=== PATIENT | male | born 1950 | race Two or more races ===

== ENCOUNTER 2017-10-11 12:02 | Inpatient (IN) | payer MEDICARE ==
[2017-10-11] MEDS ORDERED: NORMAL SALINE 1000 ML 1,000 ML IV ONE (12:29)
--- NOTE | 2017-10-11 12:33 | ER Document Report ---
ED Medical Screen (RME) - General Chief Complaint: Near Syncope Stated Complaint: BLOOD SUGAR ISSUE Time Seen by Provider: 10/11/17 12:23 Mode of Arrival: Ambulatory Information source: Patient TRAVEL OUTSIDE OF THE [place] IN LAST 30 DAYS: No - HPI Patient complains to provider of: Syncope and high blood sugar Onset: Other - 67-year-old who presents 2 days after an episode of syncope as well as generalized fatigue. He has had polyuria, polydipsia, lightheadedness and an episode of syncope while standing non-exertionally. He has not checked his blood sugar in approximately 4 weeks, he has been taking his normal blood pressure medications as well as his metformin. - Related Data Allergies/Adverse Reactions: No Known Allergies Allergy (Verified 10/11/17 12:28) Past Medical History - Social History Frequency of alcohol use: None Drug Abuse: None - Past Medical History Cardiac Medical History: Reports: Hx Hypertension Endocrine Medical History: Reports: Hx Diabetes Mellitus Type 2 Renal/ Medical History: Denies: Hx Peritoneal Dialysis Past Surgical History: Reports: Hx Orthopedic Surgery - bilateral knees Physical Exam - Vital signs Vitals: Temp Pulse Resp BP Pulse Ox 98.0 F 107 H 18 120/68 95 10/11/17 12:11 10/11/17 12:11 10/11/17 12:11 10/11/17 12:11 10/11/17 12:11 - Notes Notes: Chronically ill-appearing 67-year-old man neurologically intact without any obvious murmurs rubs clicks. Course - Re-evaluation Re-evalutation: 10/11/17 12:32 This 67-year-old man presents for poorly controlled diabetes previously non- insulin-dependent as well as an episode of syncope. Given his multiple risk factors for potential cardiac etiology will obtain enzymes as well as an EKG, will obtain CMP CBC VBG has this patient also has an unmeasurable blood glucose at this time suggesting greater than 600 with the potential for DKA. At this time he may have a condition which represents a serious injury or life threat. - Vital Signs Vital signs: Temp Pulse Resp BP Pulse Ox 98.0 F 107 H 18 120/68 95 10/11/17 12:11 10/11/17 12:11 10/11/17 12:11 10/11/17 12:11 10/11/17 12:11
[2017-10-11 13:19] LABS: ABSOLUTE BASOPHILS # (AUTO) 0.1 10^3/uL (0.0-0.2); ABSOLUTE LYMPHOCYTES (AUTO) 1.1 10^3/uL (0.5-4.7); ABSOLUTE MONOCYTES (AUTO) 0.8 10^3/uL (0.1-1.4); ABSOLUTE NEUT (AUTO) 8.6 10^3/uL (1.7-8.2); BASOPHILS % (AUTO) 0.6 % (0-2); EOSINOPHILS % (AUTO) 0.2 % (0-6); HEMATOCRIT 43.5 % (37.9-51.0); HEMOGLOBIN 14.6 g/dL (13.5-17.0); MEAN CORPUSCULAR HEMOGLOBIN 30.1 pg (27.0-33.4); MEAN CORPUSCULAR HGB CONC 33.7 g/dL (32.0-36.0); MEAN CORPUSCULAR VOLUME 89 fl (80-97); MONOCYTES % (AUTO) 7.9 % (3-13); PLATELET COUNT 228 10^3/uL (150-450); RED BLOOD COUNT 4.86 10^6/uL (4.35-5.55); RED CELL DISTRIBUTION WIDTH 12.7 % (11.5-14.0); SEGMENTED NEUTROPHILS % (AUTO) 81.3 % (42-78); TOTAL CELLS COUNTED % (AUTO) 100 %; WHITE BLOOD COUNT 10.6 10^3/uL (4.0-10.5)
[2017-10-11 13:37] LABS: APPEARANCE,URINE SLIGHTLY-CLOUDY; BILIRUBIN,URINE NEGATIVE (NEGATIVE); COLOR,URINE YELLOW; GLUCOSE, URINE >=500 mg/dL (NEGATIVE); KETONES,URINE TRACE mg/dL (NEGATIVE); LEUKOCYTE ESTERASE,URINE SMALL (NEGATIVE); NITRITE,URINE NEGATIVE (NEGATIVE); PROTEIN,URINE NEGATIVE (NEGATIVE); URINE SPECIFIC GRAVITY 1.025; UROBILINOGEN,URINE NEGATIVE mg/dL (<2.0)
[2017-10-11 13:43] LABS: ALANINE AMINOTRANSFERASE 17 U/L (21-72); ALBUMIN 3.7 g/dL (3.5-5.0); ALKALINE PHOSPHATASE 126 U/L (38-126); ANION GAP 18 (5-19); ASPARTATE AMINO TRANSFERASE 16 U/L (17-59); BILIRUBIN,DIRECT 0.3 mg/dL (0.0-0.4); BILIRUBIN,TOTAL 0.6 mg/dL (0.2-1.3); BLOOD UREA NITROGEN 36 mg/dL (7-20); CALCIUM 9.3 mg/dL (8.4-10.2); CARBON DIOXIDE 25 mmol/L (22-30); CHLORIDE 84 mmol/L (98-107); CREATINE KINASE 50 U/L (55-170); POTASSIUM 5.3 mmol/L (3.6-5.0); SODIUM 126.7 mmol/L (137-145)
--- NOTE | 2017-10-11 13:45 | RADIOLOGY REPORT (SQ) ---
EXAM DESCRIPTION: CHEST SINGLE VIEW COMPLETED DATE/TIME: 10/11/2017 1:21 pm REASON FOR STUDY: syncope COMPARISON: None. EXAM PARAMETERS: NUMBER OF VIEWS: One view. TECHNIQUE: Single frontal radiographic view of the chest acquired. RADIATION DOSE: NA LIMITATIONS: None. FINDINGS: LUNGS AND PLEURA: No opacities, masses or pneumothorax. No pleural effusion. MEDIASTINUM AND HILAR STRUCTURES: No masses. Contour normal. HEART AND VASCULAR STRUCTURES: Heart normal in size. Normal vasculature. BONES: No acute findings. HARDWARE: None in the chest. OTHER: No other significant finding. IMPRESSION: NO ACUTE RADIOGRAPHIC FINDING IN THE CHEST. TECHNICAL DOCUMENTATION: JOB ID: [id number] [employer]- All Rights Reserved Reading location - IP/workstation name: [email or web address]
--- NOTE | 2017-10-11 13:51 | ER Document Report ---
ED General - General Chief Complaint: Near Syncope Stated Complaint: BLOOD SUGAR ISSUE Time Seen by Provider: 10/11/17 12:23 Mode of Arrival: Ambulatory Information source: Patient TRAVEL OUTSIDE OF THE [place] IN LAST 30 DAYS: No - HPI Patient complains to provider of: High blood sugar Quality of pain: No pain Associated symptoms: Body/muscle aches, Nausea, Vomiting, Weakness Exacerbated by: Denies Relieved by: Denies Notes: Patient is a 67-year-old male with a history of type 2 diabetes, presenting to the emergency room today complaining of increased thirst and urination, nausea with decreased appetite and occasional vomiting, generalized feeling of unwellness, symptoms have been worsening over the past week, he states he had a near syncopal episode 3 days ago as well when he collapsed but did not have loss of consciousness, he has not checked his blood sugar in several weeks but continues to take his metformin, recently relocated to the area from [place] , son is a marine located here, patient has been staying in a hotel because he lost the job that he moved down here to take, and states that he will run out of money tomorrow and be unable to stay at the hotel any longer until he gets his check again on 21 October - Related Data Allergies/Adverse Reactions: No Known Allergies Allergy (Verified 10/11/17 12:28) Past Medical History - General Information source: Patient - Social History Smoking Status: Never Smoker Frequency of alcohol use: None Drug Abuse: None Family History: Reviewed & Not Pertinent Patient has suicidal ideation: No Patient has homicidal ideation: No - Past Medical History Cardiac Medical History: Reports: Hx Hypertension Endocrine Medical History: Reports: Hx Diabetes Mellitus Type 2 Renal/ Medical History: Denies: Hx Peritoneal Dialysis Past Surgical History: Reports: Hx Orthopedic Surgery - bilateral knees Review of Systems - Review of Systems Constitutional: See HPI EENT: No symptoms reported Cardiovascular: No symptoms reported Respiratory: No symptoms reported Gastrointestinal: See HPI Genitourinary: See HPI Male Genitourinary: No symptoms reported Musculoskeletal: No symptoms reported Skin: No symptoms reported Hematologic/Lymphatic: No symptoms reported Neurological/Psychological: No symptoms reported -: Yes All other systems reviewed and negative Physical Exam - Vital signs Vitals: Temp Pulse Resp BP Pulse Ox 98.0 F 107 H 18 120/68 95 10/11/17 12:11 10/11/17 12:11 10/11/17 12:11 10/11/17 12:11 10/11/17 12:11 Interpretation: Tachycardic - General General appearance: Appears well, Alert - HEENT Head: Normocephalic, Atraumatic Eyes: Normal Pupils: PERRL - Respiratory Respiratory status: No respiratory distress Chest status: Nontender Breath sounds: Normal Chest palpation: Normal - Cardiovascular Rhythm: Regular Heart sounds: Normal auscultation Murmur: No - Abdominal Inspection: Normal Distension: No distension Bowel sounds: Normal Tenderness: Nontender Organomegaly: No organomegaly - Back Back: Normal, Nontender - Extremities General upper extremity: Normal inspection, Nontender, Normal color, Normal ROM , Normal temperature General lower extremity: Normal inspection, Nontender, Normal color, Normal ROM , Normal temperature, Normal weight bearing. No: Chanelle's sign - Neurological Neuro grossly intact: Yes Cognition: Normal Orientation: AAOx4 Mary Alcie Coma Scale Eye Opening: Spontaneous [place] Coma Scale Verbal: Oriented [place] Coma Scale Motor: Obeys Commands [place] Coma Scale Total: 15 Speech: Normal Motor strength normal: LUE, RUE, LLE, RLE Sensory: Normal - Psychological Associated symptoms: Normal affect, Normal mood - Skin Skin Temperature: Warm Skin Moisture: Dry Skin Color: Normal Course - Re-evaluation Re-evalutation: 10/11/17 14:07 Patient with serum blood glucose of 1005, otherwise labs are relatively benign, symptoms consistent with nonketotic hyperosmolar hyperglycemia, patient was discussed with the hospitalist team, SONAL Mendieta who agrees to admit for further evaluation and treatment, insulin drip has been ordered, patient is currently receiving IV fluids, plan was discussed with him at bedside and he is in agreement - Vital Signs Vital signs: Temp Pulse Resp BP Pulse Ox 98.0 F 107 H 18 120/68 95 10/11/17 12:11 10/11/17 12:11 10/11/17 12:11 10/11/17 12:11 10/11/17 12:11 - Laboratory Result Diagrams: 10/11/17 13:02 10/11/17 13:02 Laboratory results interpreted by me: 10/11/17 10/11/17 10/11/17 13:02 13:02 13:02 WBC 10.6 H Seg Neutrophils % 81.3 H Lymphocytes % 10.0 L Absolute Neutrophils 8.6 H Sodium 126.7 L Potassium 5.3 H Chloride 84 L BUN 36 H Creatinine 1.60 H Est GFR ( Amer) 52 L Est GFR (Non-Af Amer) 43 L Glucose 1005 H* AST 16 L ALT 17 L Creatine Kinase 50 L Urine Glucose (UA) >=500 H Urine Ketones TRACE H Ur Leukocyte Esterase SMALL H - EKG Interpretation by Ca EKG shows normal: Sinus rhythm Rate: Tachycardia Discharge - Discharge Clinical Impression: Hyperglycemic hyperosmolar nonketotic coma Condition: Serious Disposition: ADMITTED INPATIENT Admitting Provider: Hospitalist Unit Admitted: [facility]
[2017-10-11 13:54] LABS: CREATINE KINASE MB 0.71 ng/mL (<4.55)
[2017-10-11 13:57] LABS: GLUCOSE 1005 mg/dL (75-110)
[2017-10-11 13:58] LABS: TROPONIN I < 0.012 ng/mL
[2017-10-11] MEDS ORDERED: INSULIN REG, HUMAN 100 UNIT/ML 3 ML VIAL (PYX) IV ONE ×2 (14:00→16:30)
[2017-10-11] MEDS: INSULIN, REGULAR 100 UNIT/100 ML NORMAL SALINE IV PRN ×2 (14:02)
[2017-10-11 14:12] LABS: VENOUS BLOOD BASE EXCESS 1.1 mmol/L; VENOUS BLOOD HCO3 27.1 mmol/L (20-32); VENOUS BLOOD PCO2 48.1 mmHg (35-63); VENOUS BLOOD PH 7.37 (7.30-7.42)
[2017-10-11] MEDS ORDERED: DEXTROSE 50%-WATER 25 GM/50 ML DISP.SYRIN IV PRN ×2 (15:21)
[2017-10-11] MEDS ORDERED: GLUCAGON,HUMAN RECOMB 1 MG INJ SUBCUT PRN (15:21)
[2017-10-11] MEDS ORDERED: ACETAMINOPHEN 325 MG TABLET PO PRN (15:21)
[2017-10-11] MEDS ORDERED: NORMAL SALINE 1000 ML 1,000 ML IV PRN (15:21)
[2017-10-11] MEDS ORDERED: DEXTROSE 40% GEL 15 GM TUBE PO PRN ×3 (15:21→17:32)
[2017-10-11] MEDS ORDERED: HYDRALAZINE HCL INJ/PF 20 MG/1 ML SDV IV PRN (15:33)
[2017-10-11] MEDS ORDERED: INSULIN, REGULAR 100 UNIT/100 ML NORMAL SALINE IV PRN ×2 (17:20)
[2017-10-11] MEDS ORDERED: DEXTROSE 50%-WATER SYRINGE 25 GM/50 ML DOSE IV PRN (17:32)
[2017-10-11] MEDS ORDERED: DEXTROSE 40% GEL 15 GM TUBE X 2 PO PRN (17:32)
[2017-10-11] MEDS ORDERED: GLUCAGON,HUMAN RECOMB 1 MG INJ IM PRN (17:32)
[2017-10-11] MEDS ORDERED: DEXTROSE 50%-WATER SYRINGE 12.5 GM/25 ML DOSE IV PRN (17:32)
--- NOTE | 2017-10-11 18:00 | PDOC H&P ---
History of Present Illness Admission Date/PCP: 10/11/17 14:32 Patient complains of: NAUSEA. POLYURIA. POLYDIPSIA. History of Present Illness: FERNY HAN is a 67 year old male who presented to the emergency department with a 3-day complaint of nausea, dizziness and vision changes. PMH includes HTN and DM 2. The patient states he began experiencing nausea, headaches, vision changes, polyuria and polydipsia approximately 3 days ago. The patient' s symptoms became increasingly worse over the course of 3 days, which prompted him to come to the emergency department. Upon arrival to the ED, his Accu-Chek reading was 'HIGH.' Laboratory studies reveal hyperglycemia (BG 1006), urine glucose > 500, trace urine ketones, creatinine 1.6, potassium 5.3. EKG demonstrates sinus tachycardia, no evidence of ischemia or infarction. CXR benign. Upon assessment, the patient is resting comfortably in bed on room air. He is alert and oriented x3, able to answer all questions appropriately. The patient states he recently relocated from [place] in order to be closer to his son. Patient has not established a PMD in [place], [place]. The patient states he takes metformin BID to control his diabetes but admits he has not checked his blood glucose "in weeks." The patient appears well-nourished and well-developed , appears to be his stated age. Lungs are clear to auscultation. S1-S2. Palpable pulses in all extremities. Skin is warm, pink and dry. Mucous membranes are pink and moist. There is no significant evidence of severe dehydration. Treated with 1 L IVF bolus in ED, continued on maintenance IVF, initiated insulin gtt, and received 9 units regular insulin IV (0.1 u/kg) - all per 2009 ADA guidelines. Plan to admit to hospitalist service for hyperglycemia hyperosmolar nonketotic state (HHNK). Admit to IM on insulin gtt. Past Medical History Cardiac Medical History: Reports: Hypertension Pulmonary Medical History: Reports: None EENT Medical History: Reports: None Neurological Medical History: Reports: None Endocrine Medical History: Reports: Diabetes Mellitus Type 2 Renal/ Medical History: Reports: None Malignancy Medical History: Reports: None GI Medical History: Reports: None Musculoskeltal Medical History: Reports: None Psychiatric Medical History: Reports: None Traumatic Medical History: Reports: None Hematology: Reports: None Infectious Medical History: Reports: None Past Surgical History Past Surgical History: Reports: Orthopedic Surgery - bilateral knee REPLACEMENT Social History Information Source: Patient Lives with: Alone Smoking Status: Never Smoker Frequency of Alcohol Use: None Hx Recreational Drug Use: No Drugs: None Hx Prescription Drug Abuse: No - Advance Directive Resuscitation Status: Full Code Family History Family History: Reviewed & Not Pertinent Parental Family History Reviewed: No Children Family History Reviewed: No Sibling(s) Family History Reviewed.: No Medication/Allergy Allergies/Adverse Reactions: No Known Allergies Allergy (Verified 10/11/17 12:28) Review of Systems All systems: reviewed and no additional remarkable complaints except as stated Physical Exam Vital Signs: Temp Pulse Resp BP Pulse Ox 98.0 F 107 H 18 120/68 95 10/11/17 12:11 10/11/17 12:11 10/11/17 12:11 10/11/17 12:11 10/11/17 12:11 General appearance: PRESENT: no acute distress Eye exam: PRESENT: conjunctiva pink, PERRLA Mouth exam: PRESENT: moist Neck exam: PRESENT: full ROM Respiratory exam: PRESENT: clear to auscultation sandra, symmetrical, unlabored Cardiovascular exam: PRESENT: +S1, +S2 Pulses: PRESENT: normal radial pulses, normal dorsalis pedis pul GI/Abdominal exam: PRESENT: normal bowel sounds, soft. ABSENT: tenderness Rectal exam: PRESENT: deferred Extremities exam: PRESENT: full ROM Musculoskeletal exam: PRESENT: ambulatory, full ROM Neurological exam: PRESENT: alert, awake, oriented to person, oriented to place , oriented to time, oriented to situation Psychiatric exam: PRESENT: appropriate affect Skin exam: PRESENT: dry, intact, normal color Results Impressions: Chest X-Ray 10/11/17 12:29 IMPRESSION: NO ACUTE RADIOGRAPHIC FINDING IN THE CHEST. Status: Imported from PACS Assessment & Plan - Diagnosis (1) Hyperglycemic hyperosmolar nonketotic coma Is this a current diagnosis for this admission?: Yes Plan: BG 1005. Urine glucose >500. Trace Ketones in urine. No evidence of acidosis on laboratory studies. Patient endorses history of DM II, states he takes daily metformin as directed, admits to not checking his blood glucose "in weeks" Corrected Na 141 Serum Osm (with corrected Na) 303.55 mOsm/kg Initiated insulin gtt in ED 10U Regular insulin bolus IV Q1hr accuchecks Q6hr BMP Bolus 1 L IVF in ED, continue with NS @ 125ml/hr When BG < 300, switch IVF to D5 1/2 NS @ 150ml/hr Strict I&Os (2) Acute renal failure (ARF) Is this a current diagnosis for this admission?: Yes Plan: Patient denies history of kidney disease Initial Cr 1.6 Likely due to volume depletion stemming from HHNK [place] IVF bolus in ED Continue maintenance IVF @ 125mL/hr Strict I&Os (3) HTN (hypertension) Qualifiers: Hypertension type: essential hypertension Qualified Code(s): I10 - Essential (primary) hypertension Is this a current diagnosis for this admission?: Yes Plan: Patient endorses history of HTN Plan to resume home dose Lisinopril (4) Hyperkalemia Is this a current diagnosis for this admission?: Yes Plan: Secondary to HHNK Likely will resolve with insulin gtt and IVF Continue to monitor with daily chemistries - Time Time Spent: 30 to 50 Minutes Critical Time spent with patient: Less than 15 minutes Medications reviewed and adjusted accordingly: Yes Anticipated discharge: Home - Inpatient Certification Based on my medical assessment, after consideration of the patient's comorbidities, presenting symptoms, or acuity I expect that the services needed warrant INPATIENT care.: Yes I certify that my determination is in accordance with my understanding of Medicare's requirements for reasonable and necessary INPATIENT services [42 CFR 412.3e].: Yes Medical Necessity: Need For IV Fluids, Risk of Complication if Not Cared For in Hospital - Plan Summary Plan Summary: insulin gtt. ivf. close monitoring of BG
[2017-10-11 19:27] LABS: ANION GAP 8 (5-19); BLOOD UREA NITROGEN 33 mg/dL (7-20); CALCIUM 9.5 mg/dL (8.4-10.2); CARBON DIOXIDE 33 mmol/L (22-30); CHLORIDE 95 mmol/L (98-107); GLUCOSE 389 mg/dL (75-110); SODIUM 136.1 mmol/L (137-145)
--- NOTE | 2017-10-11 20:32 | EKG REPORT ---
SEVERITY:- OTHERWISE NORMAL ECG - SINUS TACHYCARDIA VENTRICULAR PREMATURE COMPLEX : Confirmed by: Mago Casey 11-Oct-2017 17:31:48
[2017-10-11 21:26] LABS: POTASSIUM 4.4 mmol/L (3.6-5.0)
[2017-10-12] MEDS ORDERED: DEXTROSE 5%-WATER 1000 ML 1,000 ML IV PRN (01:06)
[2017-10-12 02:02] LABS: ANION GAP 9 (5-19); BLOOD UREA NITROGEN 30 mg/dL (7-20); CALCIUM 9.6 mg/dL (8.4-10.2); CARBON DIOXIDE 28 mmol/L (22-30); CHLORIDE 103 mmol/L (98-107); GLUCOSE 59 mg/dL (75-110); SODIUM 140.4 mmol/L (137-145)
[2017-10-12 02:43] LABS: POTASSIUM 3.2 mmol/L (3.6-5.0)
[2017-10-12] MEDS: POTASSIUM CHLORIDE 20 MEQ/50 ML RTU IV SCH ×2 (03:38→05:35)
[2017-10-12] MEDS ORDERED: POTASSI CL 20 MEQ/50 ML RIDER 20 MEQ/50 ML RTUPB IV ONE (04:00)
[2017-10-12] MEDS: INSULIN, REGULAR 100 UNIT/100 ML NORMAL SALINE IV PRN ×2 (06:21)
[2017-10-12 06:22] LABS: ANION GAP 11 (5-19); BLOOD UREA NITROGEN 27 mg/dL (7-20); CALCIUM 8.9 mg/dL (8.4-10.2); CARBON DIOXIDE 26 mmol/L (22-30); CHLORIDE 104 mmol/L (98-107); GLUCOSE 65 mg/dL (75-110); POTASSIUM 3.5 mmol/L (3.6-5.0); SODIUM 140.9 mmol/L (137-145)
[2017-10-12 07:00] LABS: HEMATOCRIT 37.9 % (37.9-51.0); HEMOGLOBIN 13.4 g/dL (13.5-17.0); MEAN CORPUSCULAR HEMOGLOBIN 29.8 pg (27.0-33.4); MEAN CORPUSCULAR HGB CONC 35.4 g/dL (32.0-36.0); PLATELET COUNT 174 10^3/uL (150-450); RED CELL DISTRIBUTION WIDTH 12.2 % (11.5-14.0); WHITE BLOOD COUNT 9.8 10^3/uL (4.0-10.5)
[2017-10-12 07:02] LABS: MEAN CORPUSCULAR VOLUME 84 fl (80-97)
[2017-10-12] MEDS ORDERED: GLUCAGON,HUMAN RECOMB 1 MG INJ IM PRN (08:00)
[2017-10-12] MEDS ORDERED: DEXTROSE 40% GEL 15 GM TUBE PO PRN ×2 (08:00)
[2017-10-12] MEDS ORDERED: DEXTROSE 50%-WATER 25 GM/50 ML DISP.SYRIN IV PRN ×2 (08:00)
--- NOTE | 2017-10-12 10:43 | PDOC PROGRESS REPORT ---
<STAR MENDIETA Seymour - Last Filed: 10/12/17 10:22> Subjective Progress Note for:: 10/12/17 Subjective:: 67 Y.O. M admitted to [facility] for NK. The patient reported a 3 day history of nausea, pulyuria, polydipsia, and headaches. Initial BG 1005, serum Osm 303, urine glucose > 500, trace urine ketones. The patient was seen this morning on rounds. He reports feeling much better today. The patient denies symptoms of polyuria or polydipsia. The patient endorses intermittent blurry vision, denies headaches, denies vision changes when he is wearing corrective eyewear. Insulin gtt stopped this morning. Patient's BG down to 104 when switched to SC Lantus and Humalog SSI. Will continue to closely monitor blood glucose. Barring any complications, anticipate discharge home tomorrow. Reason For Visit: HHNK Physical Exam Vital Signs: Temp Pulse Resp BP Pulse Ox 98.5 F 76 16 120/70 96 10/12/17 07:56 10/12/17 07:56 10/12/17 07:56 10/12/17 07:56 10/12/17 07:56 Intake & Output 10/11/17 10/12/17 10/13/17 06:59 06:59 06:59 Intake Total 1142 60 Output Total 1250 Balance -108 60 Weight 95.2 kg General appearance: PRESENT: no acute distress, well-developed, well-nourished Head exam: PRESENT: atraumatic, normocephalic Eye exam: PRESENT: conjunctiva pink, EOMI, PERRLA. ABSENT: scleral icterus Ear exam: PRESENT: normal external ear exam Mouth exam: PRESENT: moist, tongue midline Neck exam: ABSENT: carotid bruit, JVD, lymphadenopathy, thyromegaly Respiratory exam: PRESENT: clear to auscultation sandra, symmetrical, unlabored. ABSENT: rales, rhonchi, wheezes Cardiovascular exam: PRESENT: RRR. ABSENT: diastolic murmur, rubs, systolic murmur Pulses: PRESENT: normal dorsalis pedis pul Vascular exam: PRESENT: normal capillary refill GI/Abdominal exam: PRESENT: soft. ABSENT: distended, guarding, mass, organolmegaly, rebound, tenderness Rectal exam: PRESENT: deferred Extremities exam: PRESENT: full ROM. ABSENT: calf tenderness, clubbing, pedal edema Neurological exam: PRESENT: alert, awake, oriented to person, oriented to place , oriented to time, oriented to situation Psychiatric exam: PRESENT: appropriate affect, normal mood Skin exam: PRESENT: dry, intact, warm. ABSENT: cyanosis, rash Results Laboratory Results: 10/12/17 05:33 10/12/17 05:33 10/11/17 10/11/17 10/11/17 18:00 18:54 19:30 WBC RBC Hgb Hct MCV MCH MCHC RDW Plt Count Sodium 136.1 L Potassium 4.4 Chloride 95 L Carbon Dioxide 33 H Anion Gap 8 BUN 33 H Creatinine 1.27 H Est GFR ( Amer) > 60 Est GFR (Non-Af Amer) 56 L Glucose 370 H 389 H 301 H Calcium 9.5 Phosphorus Magnesium 10/12/17 10/12/17 10/12/17 01:12 05:33 05:33 WBC 9.8 RBC 4.50 Hgb 13.4 L Hct 37.9 MCV 84 D MCH 29.8 MCHC 35.4 RDW 12.2 Plt Count 174 Sodium 140.4 140.9 Potassium 3.2 L D 3.5 L Chloride 103 104 Carbon Dioxide 28 26 Anion Gap 9 11 BUN 30 H 27 H Creatinine 1.05 0.91 Est GFR ( Amer) > 60 > 60 Est GFR (Non-Af Amer) > 60 > 60 Glucose 59 L 65 L Calcium 9.6 8.9 Phosphorus 3.0 Magnesium 2.3 10/11/17 10/12/17 18:00 05:33 Troponin I < 0.012 NT-Pro-B Natriuret Pep 31 Impressions: Chest X-Ray 10/11/17 12:29 IMPRESSION: NO ACUTE RADIOGRAPHIC FINDING IN THE CHEST. Status: Imported from PACS Assessment & Plan - Diagnosis (1) Hyperglycemic hyperosmolar nonketotic coma Is this a current diagnosis for this admission?: Yes Plan: Resolved Initial BG 1005. Urine glucose >500. Trace Ketones in urine. No evidence of acidosis on laboratory studies. Patient endorses history of DM II, states he takes daily metformin as directed, admits to not checking his blood glucose "in weeks" Initial corrected Na 141, Serum Osm (with corrected Na) 303.55 mOsm/kg Greatly improved today. Na 140. Serum Osm 300 mOsm/kg Initially on insulin gtt, now transitioned to SC Lantus and SC Humalog SSI ACHS accuchecks IVF resuscitation in ED followed by maintenance IVF. Discontinued now that patient is tolerating PO Strict I&Os (2) Acute renal failure (ARF) Is this a current diagnosis for this admission?: Yes Plan: Resolved. Patient denies history of kidney disease Initial Cr 1.6, down to 0.9 today Likely due to volume depletion stemming from HHNK IVF resuscitation in ED. Discontinue maintenance IVF now that patient is tolerating PO Strict I&Os (3) HTN (hypertension) QualifierTitle: Hypertension type: essential hypertension Qualified Code( s): I10 - Essential (primary) hypertension Is this a current diagnosis for this admission?: Yes Plan: Patient endorses history of HTN Plan to resume home dose Lisinopril and HCTZ (4) Hyperkalemia Is this a current diagnosis for this admission?: Yes Plan: Resolved. Potassium was 3.5 this morning HYPERkalemia secondary to HHNK Initial potassium 5.3 Likely will resolve with insulin gtt and IVF Continue to monitor with daily chemistries - Time Time Spent with patient: 15-24 minutes Medications reviewed and adjusted accordingly: Yes Anticipated discharge: Home Within: within 24 hours - Inpatient Certification Based on my medical assessment, after consideration of the patient's comorbidities, presenting symptoms, or acuity I expect that the services needed warrant INPATIENT care.: Yes I certify that my determination is in accordance with my understanding of Medicare's requirements for reasonable and necessary INPATIENT services [42 CFR 412.3e].: Yes Medical Necessity: Risk of Complication if Not Cared For in Hospital - Plan Summary Plan Summary: DISCONTINUE INSULIN GTT. INITIATE LANTUS SC AND HUMALOG SSI SC. PATIENT WILL REQUIRE ASSISTANCE IN FINDING NEW PRIMARY CARE DOCTOR AND OPTHOMOLOGIST POST- DISCHARGE. <MADELAINE MORRELL M - Last Filed: 10/22/17 16:14> Subjective Reason For Visit: NK Physical Exam Vital Signs: Temp Pulse Resp BP Pulse Ox 98.0 F 89 14 115/62 100 10/15/17 17:28 10/15/17 17:28 10/15/17 17:28 10/15/17 17:28 10/15/17 17:28 Results Laboratory Results: 10/14/17 05:26 10/15/17 04:37 10/11/17 10/12/17 18:00 05:33 Troponin I < 0.012 NT-Pro-B Natriuret Pep 31 Impressions: Chest X-Ray 10/11/17 12:29 IMPRESSION: NO ACUTE RADIOGRAPHIC FINDING IN THE CHEST. Provider Note Provider Note: I have discussed this patient with EMILY Mendieta. I am in agreement with her evaluation and plan.
[2017-10-12] MEDS: ENOXAPARIN SODIUM INJ 30 MG/0.3 ML DISP.SYRIN SUBCUT SCH (11:33)
[2017-10-12] MEDS: LISINOPRIL 10 MG TABLET PO SCH (11:33)
[2017-10-12] MEDS: HYDROCHLOROTHIAZIDE 25 MG TABLET PO SCH (11:33)
[2017-10-12] MEDS: INSULIN GLARGINE,HUM.REC.ANLOG 300 UNIT/3 ML INSULN.PEN SUBCUT SCH (11:33)
[2017-10-12] MEDS: FLUOXETINE HCL 20 MG CAPSULE PO SCH (11:33)
[2017-10-12] MEDS: INSULIN LISPRO 100 UNIT/ML 3 ML VIAL SUBCUT PRN ×3 (12:28→22:33)
[2017-10-12 14:56] LABS: ANION GAP 14 (5-19); BLOOD UREA NITROGEN 26 mg/dL (7-20); CALCIUM 8.8 mg/dL (8.4-10.2); CARBON DIOXIDE 22 mmol/L (22-30); CHLORIDE 99 mmol/L (98-107); GLUCOSE 320 mg/dL (75-110); SODIUM 135.2 mmol/L (137-145)
[2017-10-12] MEDS ORDERED: GABAPENTIN 100 MG CAPSULE PO ONE (18:00)
[2017-10-13 07:59] LABS: ANION GAP 11 (5-19); BLOOD UREA NITROGEN 19 mg/dL (7-20); CALCIUM 8.5 mg/dL (8.4-10.2); CARBON DIOXIDE 25 mmol/L (22-30); CHLORIDE 102 mmol/L (98-107); GLUCOSE 184 mg/dL (75-110); PHOSPHORUS 2.8 mg/dL (2.5-4.5); POTASSIUM 3.8 mmol/L (3.6-5.0); SODIUM 137.6 mmol/L (137-145)
[2017-10-13] MEDS: INSULIN LISPRO 100 UNIT/ML 3 ML VIAL SUBCUT PRN ×4 (08:17→22:33)
[2017-10-13] MEDS: LISINOPRIL 10 MG TABLET PO SCH (10:27)
[2017-10-13] MEDS: ENOXAPARIN SODIUM INJ 30 MG/0.3 ML DISP.SYRIN SUBCUT SCH (10:28)
[2017-10-13] MEDS: GABAPENTIN 100 MG CAPSULE PO SCH (10:28)
[2017-10-13] MEDS: FLUOXETINE HCL 20 MG CAPSULE PO SCH (10:28)
[2017-10-13] MEDS: HYDROCHLOROTHIAZIDE 25 MG TABLET PO SCH (10:28)
[2017-10-13] MEDS: INSULIN GLARGINE,HUM.REC.ANLOG 300 UNIT/3 ML INSULN.PEN SUBCUT SCH (12:20)
--- NOTE | 2017-10-13 17:10 | PDOC PROGRESS REPORT ---
<STAR MENDIETA Seymour - Last Filed: 10/13/17 17:01> Subjective Progress Note for:: 10/13/17 Subjective:: 67 Y.O. M admitted to [facility] for NK. The patient reported a 3 day history of nausea, pulyuria, polydipsia, and headaches. Initial BG 1005, serum Osm 303, urine glucose > 500, trace urine ketones. The patient was seen this morning on rounds. He reports feeling much better today. The patient denies symptoms of polyuria or polydipsia. Patient's BG remains elevated today, 250-400. Switched from insulin gtt to SC Lantus and Humalog SSI yesterday. Based on 24hr insulin requirements, the patient is receiving the appropriate amount of Lantus. Plan to increase sliding scale dosage. Will continue to closely monitor blood glucose. Barring any complications, anticipate discharge home tomorrow. Reason For Visit: HHNK Physical Exam Vital Signs: Temp Pulse Resp BP Pulse Ox 98.6 F 90 16 114/69 95 10/13/17 11:45 10/13/17 14:00 10/13/17 11:45 10/13/17 11:45 10/13/17 11:45 Intake & Output 10/12/17 10/13/17 10/14/17 06:59 06:59 06:59 Intake Total 1142 1157 525 Output Total 1250 2200 200 Balance -108 -1043 325 Weight 95.2 kg 95.5 kg General appearance: PRESENT: no acute distress, well-developed, well-nourished Eye exam: PRESENT: conjunctiva pink, PERRLA Mouth exam: PRESENT: moist, tongue midline Teeth exam: PRESENT: poor dentation Neck exam: PRESENT: full ROM Respiratory exam: PRESENT: clear to auscultation sandra, symmetrical, unlabored Cardiovascular exam: PRESENT: RRR, +S1, +S2 Pulses: PRESENT: normal radial pulses, normal dorsalis pedis pul GI/Abdominal exam: PRESENT: normal bowel sounds, soft. ABSENT: distended, tenderness Rectal exam: PRESENT: deferred Extremities exam: PRESENT: full ROM Musculoskeletal exam: PRESENT: ambulatory, full ROM Neurological exam: PRESENT: alert, awake, oriented to person, oriented to place , oriented to time, oriented to situation Psychiatric exam: PRESENT: appropriate affect Skin exam: PRESENT: dry, intact, normal color Results Laboratory Results: 10/12/17 05:33 10/13/17 07:12 10/13/17 07:12 Sodium 137.6 Potassium 3.8 Chloride 102 Carbon Dioxide 25 Anion Gap 11 BUN 19 Creatinine 0.98 Est GFR ( Amer) > 60 Est GFR (Non-Af Amer) > 60 Glucose 184 H Calcium 8.5 Phosphorus 2.8 Magnesium 1.9 10/11/17 10/12/17 18:00 05:33 Troponin I < 0.012 NT-Pro-B Natriuret Pep 31 Impressions: Chest X-Ray 10/11/17 12:29 IMPRESSION: NO ACUTE RADIOGRAPHIC FINDING IN THE CHEST. Status: Imported from PACS Assessment & Plan - Diagnosis (1) Hyperglycemic hyperosmolar nonketotic coma Is this a current diagnosis for this admission?: Yes Plan: Resolved Initial BG 1005. Urine glucose >500. Trace Ketones in urine. No evidence of acidosis on laboratory studies. Patient endorses history of DM II, states he takes daily metformin as directed, admits to not checking his blood glucose "in weeks" Initial corrected Na 141, Serum Osm (with corrected Na) 303.55 mOsm/kg Greatly improved today. Na 137. Serum Osm 288 mOsm/kg Initially on insulin gtt, now transitioned to 40U SC Lantus and SC Humalog SSI Based on 24hr insulin requirements, plan to increase SSI. Lantus dose remains appropriate ACHS accuchecks IVF resuscitation in ED followed by maintenance IVF. Discontinued now that patient is tolerating PO Strict I&Os (2) Acute renal failure (ARF) Is this a current diagnosis for this admission?: Yes Plan: Resolved. Patient denies history of kidney disease Initial Cr 1.6, down to 0.9 today Likely due to volume depletion stemming from HHNK IVF resuscitation in ED. Discontinue maintenance IVF now that patient is tolerating PO Strict I&Os (3) HTN (hypertension) QualifierTitle: Hypertension type: essential hypertension Qualified Code( s): I10 - Essential (primary) hypertension Is this a current diagnosis for this admission?: Yes Plan: Patient endorses history of HTN Plan to resume home dose Lisinopril and HCTZ (4) Hyperkalemia Is this a current diagnosis for this admission?: Yes Plan: Resolved. Potassium was 3.5 this morning HYPERkalemia secondary to HHNK Initial potassium 5.3 Likely will resolve with insulin gtt and IVF Continue to monitor with daily chemistries (5) Need for diabetes education Is this a current diagnosis for this admission?: Yes Plan: According to assistant professor of chemistry, the patient requires a great deal of diabetes education prior to discharge He does not seem to understand dietary restrictions or glucose monitoring ( patient states he does not have a glucometer) Requested log chipper operator to meet with patient Will likely be discharged home on insulin and will require teaching prior to discharge - Time Time Spent with patient: 15-24 minutes Medications reviewed and adjusted accordingly: Yes Anticipated discharge: Home Within: within 24 hours - Inpatient Certification Based on my medical assessment, after consideration of the patient's comorbidities, presenting symptoms, or acuity I expect that the services needed warrant INPATIENT care.: Yes I certify that my determination is in accordance with my understanding of Medicare's requirements for reasonable and necessary INPATIENT services [42 CFR 412.3e].: Yes Medical Necessity: Risk of Complication if Not Cared For in Hospital - Plan Summary Plan Summary: INCREASE SLIDING SCALE INSULIN DOSING. PLAN FOR CONTROLLER INSTRUCTOR TO MEET WITH PATIENT TOMORROW. BARRING ANY COMPLICATIONS, PLAN FOR DISCHARGE TOMORROW. <MADELAINE MORRELL M - Last Filed: 10/22/17 16:15> Subjective Reason For Visit: HHNK Physical Exam Vital Signs: Temp Pulse Resp BP Pulse Ox 98.0 F 89 14 115/62 100 10/15/17 17:28 10/15/17 17:28 10/15/17 17:28 10/15/17 17:28 10/15/17 17:28 Results Laboratory Results: 10/14/17 05:26 10/15/17 04:37 10/11/17 10/12/17 18:00 05:33 Troponin I < 0.012 NT-Pro-B Natriuret Pep 31 Impressions: Chest X-Ray 10/11/17 12:29 IMPRESSION: NO ACUTE RADIOGRAPHIC FINDING IN THE CHEST. Provider Note Provider Note: I have discussed this patient in detail with EMILY Mendieta. I am in agreement with her evlaluation and plans.
[2017-10-14 06:18] LABS: HEMATOCRIT 37.3 % (37.9-51.0); MEAN CORPUSCULAR HEMOGLOBIN 29.8 pg (27.0-33.4); MEAN CORPUSCULAR HGB CONC 34.8 g/dL (32.0-36.0); MEAN CORPUSCULAR VOLUME 86 fl (80-97); PLATELET COUNT 172 10^3/uL (150-450); RED BLOOD COUNT 4.36 10^6/uL (4.35-5.55); RED CELL DISTRIBUTION WIDTH 12.3 % (11.5-14.0); WHITE BLOOD COUNT 7.8 10^3/uL (4.0-10.5)
[2017-10-14 06:35] LABS: ANION GAP 9 (5-19); BLOOD UREA NITROGEN 17 mg/dL (7-20); CALCIUM 8.9 mg/dL (8.4-10.2); CARBON DIOXIDE 26 mmol/L (22-30); CHLORIDE 102 mmol/L (98-107); GLUCOSE 154 mg/dL (75-110); PHOSPHORUS 3.4 mg/dL (2.5-4.5); POTASSIUM 3.9 mmol/L (3.6-5.0); SODIUM 137.3 mmol/L (137-145)
[2017-10-14] MEDS: INSULIN LISPRO 100 UNIT/ML 3 ML VIAL SUBCUT PRN ×4 (07:57→22:30)
[2017-10-14] MEDS: HYDROCHLOROTHIAZIDE 25 MG TABLET PO SCH (10:19)
[2017-10-14] MEDS: FLUOXETINE HCL 20 MG CAPSULE PO SCH (10:19)
[2017-10-14] MEDS: GABAPENTIN 100 MG CAPSULE PO SCH (10:19)
[2017-10-14] MEDS: LISINOPRIL 10 MG TABLET PO SCH (10:19)
[2017-10-14] MEDS: ENOXAPARIN SODIUM INJ 30 MG/0.3 ML DISP.SYRIN SUBCUT SCH (10:20)
[2017-10-14] MEDS: INSULIN GLARGINE,HUM.REC.ANLOG 300 UNIT/3 ML INSULN.PEN SUBCUT SCH (12:34)
[2017-10-14] MEDS ORDERED: INSULIN GLARGINE,HUM.REC.ANLOG 300 UNIT/3 ML INSULN.PEN SUBCUT ONE (15:54)
--- NOTE | 2017-10-15 00:16 | PDOC PROGRESS REPORT ---
<STAR MENDIETA Seymour - Last Filed: 10/15/17 00:05> Subjective Progress Note for:: 10/15/17 Subjective:: 67 Y.O. M admitted to [facility] for NK. The patient reported a 3 day history of nausea, pulyuria, polydipsia, and headaches. Initial BG 1005, serum Osm 303, urine glucose > 500, trace urine ketones. The patient was seen this morning on rounds. He reports feeling much better today. The patient denies symptoms of polyuria or polydipsia. In preparation for discharge, the patient met with the staff development educator today. She was able to provide the patient with a free glucometer. Patient's BG remains elevated today, 250-350. Increased Humalog SSI yesterday. Based on 24hr insulin requirements, the patient is receiving the appropriate amount of Lantus. Given his persistent HYPERglycemia, plan to increase Lantus dosing from 40U -->50U daily. Will continue to closely monitor blood glucose. Barring any complications, anticipate discharge home tomorrow. Reason For Visit: HHNK Physical Exam Vital Signs: Temp Pulse Resp BP Pulse Ox 98.3 F 75 20 107/57 L 99 10/14/17 19:36 10/14/17 20:42 10/14/17 19:36 10/14/17 19:36 10/14/17 19:36 Intake & Output 10/13/17 10/14/17 10/15/17 06:59 06:59 06:59 Intake Total 1157 1150 711 Output Total 2200 1425 Balance -1043 -275 711 Weight 95.5 kg 96 kg General appearance: PRESENT: no acute distress, well-developed, well-nourished Head exam: PRESENT: atraumatic, normocephalic Eye exam: PRESENT: conjunctiva pink, EOMI, PERRLA. ABSENT: scleral icterus Ear exam: PRESENT: normal external ear exam Mouth exam: PRESENT: moist, tongue midline Neck exam: ABSENT: carotid bruit, JVD, lymphadenopathy, thyromegaly Respiratory exam: PRESENT: clear to auscultation sandra. ABSENT: rales, rhonchi, wheezes Cardiovascular exam: PRESENT: RRR, +S1, +S2. ABSENT: diastolic murmur, rubs, systolic murmur Pulses: PRESENT: normal dorsalis pedis pul Vascular exam: PRESENT: normal capillary refill GI/Abdominal exam: PRESENT: normal bowel sounds, soft. ABSENT: distended, guarding, mass, organolmegaly, rebound, tenderness Rectal exam: PRESENT: deferred Extremities exam: PRESENT: full ROM. ABSENT: calf tenderness, clubbing, pedal edema Musculoskeletal exam: PRESENT: ambulatory, full ROM Neurological exam: PRESENT: alert, awake, oriented to person, oriented to place , oriented to time, oriented to situation Psychiatric exam: PRESENT: appropriate affect, normal mood Skin exam: PRESENT: dry, intact, warm. ABSENT: cyanosis, rash Results Laboratory Results: 10/14/17 05:26 10/14/17 05:26 10/14/17 10/14/17 05:26 05:26 WBC 7.8 RBC 4.36 Hgb 13.0 L Hct 37.3 L MCV 86 MCH 29.8 MCHC 34.8 RDW 12.3 Plt Count 172 Sodium 137.3 Potassium 3.9 Chloride 102 Carbon Dioxide 26 Anion Gap 9 BUN 17 Creatinine 0.99 Est GFR ( Amer) > 60 Est GFR (Non-Af Amer) > 60 Glucose 154 H Calcium 8.9 Phosphorus 3.4 Magnesium 2.1 10/11/17 10/12/17 18:00 05:33 Troponin I < 0.012 NT-Pro-B Natriuret Pep 31 Impressions: Chest X-Ray 10/11/17 12:29 IMPRESSION: NO ACUTE RADIOGRAPHIC FINDING IN THE CHEST. Status: Imported from PACS Assessment & Plan - Diagnosis (1) Hyperglycemic hyperosmolar nonketotic coma Is this a current diagnosis for this admission?: Yes Plan: Resolved Initial BG 1005. Urine glucose >500. Trace Ketones in urine. No evidence of acidosis on laboratory studies. Patient endorses history of DM II, states he takes daily metformin as directed, admits to not checking his blood glucose "in weeks" Initial corrected Na 141, Serum Osm (with corrected Na) 303.55 mOsm/kg Greatly improved today. Na and Serum Osm within normal range for >24hrs Initially on insulin gtt, now transitioned to 40U SC Lantus and SC Humalog SSI Increased SSI yesterday due to high dose requirements. Patient still requiring high doses of insulin and BG ranges from 175-350. Increase Lantus today 40U --> 50U daily. ACHS accuchecks IVF resuscitation in ED followed by maintenance IVF. Discontinued now that patient is tolerating PO Strict I&Os (2) Acute renal failure (ARF) Is this a current diagnosis for this admission?: Yes Plan: Resolved. Patient denies history of kidney disease Initial Cr 1.6, down to 1.0 for > 24 hrs Likely due to volume depletion stemming from HHNK IVF resuscitation in ED. Discontinue maintenance IVF now that patient is tolerating PO Strict I&Os (3) HTN (hypertension) QualifierTitle: Hypertension type: essential hypertension Qualified Code( s): I10 - Essential (primary) hypertension Is this a current diagnosis for this admission?: Yes Plan: Patient endorses history of HTN Plan to resume home dose Lisinopril and HCTZ (4) Hyperkalemia Is this a current diagnosis for this admission?: Yes Plan: Resolved. Potassium was 3.9 this morning HYPERkalemia secondary to HHNK Initial potassium 5.3 Likely will resolve with insulin gtt and IVF Continue to monitor with daily chemistries (5) Need for diabetes education Is this a current diagnosis for this admission?: Yes Plan: According to staff, the patient requires a great deal of diabetes education prior to discharge He does not seem to understand dietary restrictions or glucose monitoring ( patient states he does not have a glucometer) Requested staff development educator to meet with patient. She was able to spend time with patient today. Provided him with free glucometer. Patient will likely be discharged home on insulin and will require teaching prior to discharge - Time Time Spent with patient: 15-24 minutes Medications reviewed and adjusted accordingly: Yes Anticipated discharge: Home Within: within 24 hours - Inpatient Certification Based on my medical assessment, after consideration of the patient's comorbidities, presenting symptoms, or acuity I expect that the services needed warrant INPATIENT care.: Yes I certify that my determination is in accordance with my understanding of Medicare's requirements for reasonable and necessary INPATIENT services [42 CFR 412.3e].: Yes Medical Necessity: Risk of Complication if Not Cared For in Hospital - Plan Summary Plan Summary: INCREASE LANTUS. CONTINUE CLOSE BG MONITORING. BARRING ANY COMPLICATIONS, PLAN TO DISCHARGE HOME TOMORROW. <MADELAINE MORRELL M - Last Filed: 10/22/17 16:16> Subjective Reason For Visit: NK Physical Exam Vital Signs: Temp Pulse Resp BP Pulse Ox 98.0 F 89 14 115/62 100 10/15/17 17:28 10/15/17 17:28 10/15/17 17:28 10/15/17 17:28 10/15/17 17:28 Results Laboratory Results: 10/14/17 05:26 10/15/17 04:37 10/11/17 10/12/17 18:00 05:33 Troponin I < 0.012 NT-Pro-B Natriuret Pep 31 Impressions: Chest X-Ray 10/11/17 12:29 IMPRESSION: NO ACUTE RADIOGRAPHIC FINDING IN THE CHEST. Provider Note Provider Note: I have discussed the patient with EMILY Mendieta in detail. I am in agreement with her evaluation and plan.
[2017-10-15 05:39] LABS: ANION GAP 12 (5-19); BLOOD UREA NITROGEN 15 mg/dL (7-20); CALCIUM 8.8 mg/dL (8.4-10.2); CARBON DIOXIDE 23 mmol/L (22-30); CHLORIDE 104 mmol/L (98-107); GLUCOSE 78 mg/dL (75-110); PHOSPHORUS 3.5 mg/dL (2.5-4.5); POTASSIUM 3.4 mmol/L (3.6-5.0); SODIUM 138.9 mmol/L (137-145)
[2017-10-15] MEDS: LISINOPRIL 10 MG TABLET PO SCH (10:33)
[2017-10-15] MEDS: HYDROCHLOROTHIAZIDE 25 MG TABLET PO SCH (10:33)
[2017-10-15] MEDS: GABAPENTIN 100 MG CAPSULE PO SCH (10:33)
[2017-10-15] MEDS: FLUOXETINE HCL 20 MG CAPSULE PO SCH (10:33)
[2017-10-15] MEDS: ENOXAPARIN SODIUM INJ 30 MG/0.3 ML DISP.SYRIN SUBCUT SCH (10:33)
[2017-10-15] MEDS: INSULIN LISPRO 100 UNIT/ML 3 ML VIAL SUBCUT PRN ×2 (11:57→16:34)
[2017-10-15] MEDS ORDERED: INSULIN GLARGINE,HUM.REC.ANLOG 300 UNIT/3 ML INSULN.PEN SUBCUT SCH (12:00)
[2017-10-15 17:30] VITALS: BP 115/62
--- NOTE | 2017-10-15 19:51 | PDOC DISCHARGE SUMMARY ---
General - Admit/Disc Date/PCP Admission Date/Primary Care Provider: 10/11/17 14:32 Discharge Date: 10/15/17 - Discharge Diagnosis (1) Hyperglycemic hyperosmolar nonketotic coma Is this a current diagnosis for this admission?: Yes Summary: Resolved. Initial BG 1005. Urine glucose >500. Trace Ketones in urine. No evidence of acidosis on laboratory studies. Patient endorses history of DM II, states he takes daily metformin as directed, admits to not checking his blood glucose "in weeks" Initial corrected Na 141, Serum Osm (with corrected Na) 303.55 mOsm/kg Na and Serum Osm within normal range for >24hrs The patient was admitted to [facility] on continuous cardiac telemetry. He was initially on insulin gtt, and has successfully been transitioned to SC Lantus and SC Humalog SSI He has met with the certified breastfeeding educator and registered nurse maternal child. He has been provided a glucometer and prescriptions for alcohol wipes, lancets, and test strips. The patient has been educated on use of long and short acting insulins and has successfully self-administered insulin utilizing an insulin pen. He is provided a Lantus pen and prescriptions for Lantus, Novolog, and insulin needles. He is discharged to home in stable conditions. Discharge planning has been asked to make arrangements for home health nursing for disease and medication management for new requirement of insulin in a patient with Type 2 diabetes mellitus. a recommendation for Community Director Of Strategic Communications erferal has also been made. The patient is encouraged to follow up with his primary carer provider within 1 week and to return to the emergency department as needed. (2) Acute renal failure (ARF) Is this a current diagnosis for this admission?: Yes Summary: Resolved; secondary to volume depletion in patient with hyperglycemia/HHNK. (3) HTN (hypertension) Is this a current diagnosis for this admission?: Yes Summary: Hx of hypertension. Normotensive with resumption of home dosed lisinopril/hctz. (4) Hyperkalemia Is this a current diagnosis for this admission?: Yes Summary: Resolved; secondary to HNNK. (5) Need for diabetes education Is this a current diagnosis for this admission?: Yes Summary: The patient has met with both the certified breastfeeding educator and registerred shoe clerk. Arrangements are being made fo continued education via Home Health Nursing and the Community Director Of [employer] program. - Additional Information Resuscitation Status: Full Code Discharge Diet: Diabetic Discharge Activity: Activity As Tolerated Prescriptions: Alcohol Antiseptic Pads [Alcohol Wipes] 1 each TP ACHS #120 med..pad Blood Sugar Diagnostic [Test Strips] 1 each MC ACHS #120 strip Fluoxetine HCl [Prozac 20 mg Capsule] 20 mg PO DAILY #30 capsule Gabapentin [Neurontin 100 mg Capsule] 100 mg PO QHS #30 capsule Hydrochlorothiazide [Hydrodiuril 25 mg Tablet] 25 mg PO DAILY #30 tablet Insulin Glargine,Hum.rec.anlog [Lantus Insulin 100 Unit/mL] 24 unit SUBCUT BID # 1 insuln.pen Insulin Aspart [Novolog Flexpen] 0 - 12 unit SUBCUT ACHS #1 pen Lancets [Blood Lancets] 1 each ACHS #120 each Lisinopril [Prinivil 10 mg Tablet] 40 mg PO DAILY #30 tablet Pen Needle, Diabetic [Novotwist] 1 each 6XD #180 dis.needle Home Medications: Acetaminophen [Tylenol 325 mg Tablet] 650 mg PO Q4HP PRN tablet 10/15/17 Alcohol Antiseptic Pads [Alcohol Wipes] 1 each ACHS #120 med..pad 10/15/17 Blood Sugar Diagnostic [Test Strips] 1 each ACHS #120 strip 10/15/17 Fluoxetine HCl [Prozac 20 mg Capsule] 20 mg PO DAILY #30 capsule 10/15/17 Gabapentin [Neurontin 100 mg Capsule] 100 mg PO QHS #30 capsule 10/15/17 Hydrochlorothiazide [Hydrodiuril 25 mg Tablet] 25 mg PO DAILY #30 tablet Insulin Aspart [Novolog Flexpen] 0 - 12 unit SUBCUT ACHS #1 pen 10/15/17 Insulin Glargine,Hum.rec.anlog [Lantus Insulin 100 Unit/mL] 24 unit SUBCUT BID # 1 insuln.pen 10/15/17 Lancets [Blood Lancets] 1 each ACHS #120 each 10/15/17 Lisinopril [Prinivil 10 mg Tablet] 40 mg PO DAILY #30 tablet 10/15/17 Pen Needle, Diabetic [Novotwist] 1 each 6XD #180 dis.needle 10/15/17 History of Present Illness History of Present Illness: Pe H&P by SIOBHAN RicheyC/Dr. Pagan:FERNY HAN is a 67 year old male who presented to the emergency department with a 3-day complaint of nausea, dizziness and vision changes. PMH includes HTN and DM 2. The patient states he began experiencing nausea, headaches, vision changes, polyuria and polydipsia approximately 3 days ago. The patient's symptoms became increasingly worse over the course of 3 days, which prompted him to come to the emergency department. Upon arrival to the ED, his Accu-Chek reading was 'HIGH. ' Laboratory studies reveal hyperglycemia (BG 1006), urine glucose > 500, trace urine ketones, creatinine 1.6, potassium 5.3. EKG demonstrates sinus tachycardia, no evidence of ischemia or infarction. CXR benign. Upon assessment, the patient is resting comfortably in bed on room air. He is alert and oriented x3, able to answer all questions appropriately. The patient states he recently relocated from [place] in order to be closer to his son. Patient has not established a PMD in [place], [place]. The patient states he takes metformin BID to control his diabetes but admits he has not checked his blood glucose "in weeks." The patient appears well-nourished and well-developed , appears to be his stated age. Lungs are clear to auscultation. S1-S2. Palpable pulses in all extremities. Skin is warm, pink and dry. Mucous membranes are pink and moist. There is no significant evidence of severe dehydration. Treated with 1 L IVF bolus in ED, continued on maintenance IVF, initiated insulin gtt, and received 9 units regular insulin IV (0.1 u/kg) - all per 2009 ADA guidelines. Plan to admit to hospitalist service for hyperglycemia hyperosmolar nonketotic state (HHNK). Admit to [facility] on insulin gtt. Physical Exam Vital Signs: Temp Pulse Resp BP Pulse Ox 98.0 F 89 14 115/62 100 10/15/17 17:28 10/15/17 17:28 10/15/17 17:28 10/15/17 17:28 10/15/17 17:28 Intake & Output 10/14/17 10/15/17 10/16/17 06:59 06:59 06:59 Intake Total 1150 1211 318 Output Total 1425 350 Balance -275 861 318 Weight 96 kg 95.6 kg General appearance: PRESENT: no acute distress, well-developed, well-nourished Head exam: PRESENT: atraumatic, normocephalic Eye exam: PRESENT: conjunctiva pink, EOMI, PERRLA. ABSENT: scleral icterus Ear exam: PRESENT: normal external ear exam Mouth exam: PRESENT: moist, tongue midline Neck exam: ABSENT: carotid bruit, JVD, lymphadenopathy, thyromegaly Respiratory exam: PRESENT: clear to auscultation sandra, symmetrical, unlabored. ABSENT: rales, rhonchi, wheezes Cardiovascular exam: PRESENT: RRR, +S1, +S2, other - occasional trigeminy noted on telemetry. ABSENT: diastolic murmur, rubs, systolic murmur Pulses: PRESENT: normal dorsalis pedis pul Vascular exam: PRESENT: normal capillary refill GI/Abdominal exam: PRESENT: normal bowel sounds, soft. ABSENT: distended, guarding, mass, organolmegaly, rebound, tenderness Rectal exam: PRESENT: deferred Extremities exam: PRESENT: full ROM. ABSENT: calf tenderness, clubbing, pedal edema Neurological exam: PRESENT: alert, awake, oriented to person, oriented to place , oriented to time, oriented to situation, CN II-XII grossly intact. ABSENT: motor sensory deficit Psychiatric exam: PRESENT: appropriate affect, normal mood. ABSENT: homicidal ideation, suicidal ideation Skin exam: PRESENT: dry, intact, warm. ABSENT: cyanosis, rash Results Laboratory Results: 10/14/17 05:26 10/15/17 04:37 10/15/17 04:37 Sodium 138.9 Potassium 3.4 L Chloride 104 Carbon Dioxide 23 Anion Gap 12 BUN 15 Creatinine 0.79 Est GFR ( Amer) > 60 Est GFR (Non-Af Amer) > 60 Glucose 78 Calcium 8.8 Phosphorus 3.5 Magnesium 2.1 10/11/17 10/12/17 18:00 05:33 Troponin I < 0.012 NT-Pro-B Natriuret Pep 31 Impressions: Chest X-Ray 10/11/17 12:29 IMPRESSION: NO ACUTE RADIOGRAPHIC FINDING IN THE CHEST. Qualifiers - * PATIENT BEING DISCHARGED WITH ANY OF THE FOLLOWING DIAGNOSIS: No Plan Discharge Plan: Follow up with PCP within 1 week. Return to the Emergency Department as needed for concerning symptoms. Time Spent: Less than 30 Minutes
== END 2017-10-15 17:50 | disposition home or self-care (01) | DRG 638 ==
LOC: ER 12:02 → EH 14:32 → 3W 16:49
PROVIDERS: ADMIT Internal Medicine; ATTEND Internal Medicine
DX: E11.00 Type 2 diabetes mellitus with hyperosmolarity without nonketotic hyperglycemic-hyperosmolar coma (NKHHC) (principal); N17.9 Acute kidney failure, unspecified; I10 Essential (primary) hypertension; Z96.653 Presence of artificial knee joint, bilateral; E87.5 Hyperkalemia; Z79.899 Other long term (current) drug therapy; Z79.4 Long term (current) use of insulin
CPT/HCPCS: 36415; 71045; 80048; 80053; 81001; 82550; 82553; 82803; 82947; 82962; 83036; 83735; 83880; 84100; 84484; 85025; 85027; 93005; 93010; 96360; 99285; J1650; J1815; J3480; J7030; J7060

== ENCOUNTER 2018-03-08 16:43 | Emergency (ER) | payer MEDICARE ==
[2018-03-08] MEDS ORDERED: NORMAL SALINE 1000 ML 1,000 ML IV ONE ×2 (17:31→18:14)
[2018-03-08 17:44] LABS: ABSOLUTE BASOPHILS # (AUTO) 0.1 10^3/uL (0.0-0.2); ABSOLUTE EOSINOPHILS # (AUTO) 0.1 10^3/uL (0.0-0.6); ABSOLUTE LYMPHOCYTES (AUTO) 1.7 10^3/uL (0.5-4.7); ABSOLUTE MONOCYTES (AUTO) 0.7 10^3/uL (0.1-1.4); ABSOLUTE NEUT (AUTO) 5.9 10^3/uL (1.7-8.2); BASOPHILS % (AUTO) 0.8 % (0-2); EOSINOPHILS % (AUTO) 0.6 % (0-6); HEMATOCRIT 43.7 % (37.9-51.0); HEMOGLOBIN 14.7 g/dL (13.5-17.0); LYMPHOCYTES % (AUTO) 20.6 % (13-45); MEAN CORPUSCULAR HEMOGLOBIN 29.8 pg (27.0-33.4); MEAN CORPUSCULAR HGB CONC 33.5 g/dL (32.0-36.0); MEAN CORPUSCULAR VOLUME 89 fl (80-97); PLATELET COUNT 193 10^3/uL (150-450); RED BLOOD COUNT 4.92 10^6/uL (4.35-5.55); RED CELL DISTRIBUTION WIDTH 13.7 % (11.5-14.0); TOTAL CELLS COUNTED % (AUTO) 100 %; WHITE BLOOD COUNT 8.4 10^3/uL (4.0-10.5)
--- NOTE | 2018-03-08 17:45 | ER Document Report ---
ED Blood Sugar Problem - General Chief Complaint: High Blood Sugar Stated Complaint: BLOOD SUGAR ISSUES Time Seen by Provider: 03/08/18 17:30 Information source: Patient Notes: Patient is a 68-year-old male with past medical history of diabetes who states that after discharge around 3 months ago he could not afford the insulin pens. Patient states he is supposed to be taking metformin as well as another pill but has only been taking the metformin. He states he is able tomorrow to pickle processor the other medication at the pharmacy now that it has been transferred to his local pharmacy. He has been here around 4 months and does not have a primary care physician despite having Medicare. Patient denies any blurry vision, headache, chest pain, vomiting, fevers, or pain with urination. He does state that his urine output has increased. Patient states his Accu-Cheks have been between 277 and 500. TRAVEL OUTSIDE OF THE [place] IN LAST 30 DAYS: No - HPI Onset: Other - Over the last few days to weeks Onset/Duration: Gradual Quality of pain: No pain Severity: Moderate Pain Level: Denies Associated symptoms: Other - See above Similar symptoms previously: Yes Recently seen / treated by doctor: Yes - Related Data Allergies/Adverse Reactions: No Known Allergies Allergy (Verified 03/08/18 16:47) Past Medical History - Social History Smoking Status: Unknown if Ever Smoked Family History: Reviewed & Not Pertinent - Past Medical History Cardiac Medical History: Reports: Hx Hypertension Endocrine Medical History: Reports: Hx Diabetes Mellitus Type 2 Renal/ Medical History: Denies: Hx Peritoneal Dialysis Past Surgical History: Reports: Hx Orthopedic Surgery - bilateral knee REPLACEMENT Review of Systems - Review of Systems Constitutional: denies: Fever EENT: denies: Eye discharge, Nose discharge Cardiovascular: denies: Chest pain, Palpitations Respiratory: denies: Short of breath Gastrointestinal: denies: Vomiting Genitourinary: denies: Dysuria Musculoskeletal: denies: Leg swelling Skin: Other - no hives. denies: Rash Neurological/Psychological: Other - no slurred speech -: Yes All other systems reviewed and negative Physical Exam - Vital signs Vitals: Temp Pulse Resp BP Pulse Ox 97.4 F 90 18 166/94 H 96 03/08/18 16:54 03/08/18 16:54 03/08/18 16:54 03/08/18 16:54 03/08/18 16:54 Notes: Reviewed vital signs and nursing note as charted by RN. CONSTITUTIONAL: Alert and oriented and responds appropriately to questions. Well-appearing; well-nourished HEAD: Normocephalic; atraumatic EYES: PERRL; sclerae non-icteric ENT: Normal nose; no rhinorrhea; moist mucous membranes NECK: Supple without meningismus; non-tender CARD: Regular rate and rhythm; no murmurs; symmetric distal pulses RESP: Normal chest excursion without splinting or tachypnea; breath sounds clear and equal bilaterally; no wheezes, no rhonchi, no rales ABD/GI: Normal bowel sounds; non-distended; soft, non-tender; no palpable organomegaly or masses BACK: The back appears normal and is non-tender to palpation EXT: Normal ROM in all joints; non-tender to palpation; no edema SKIN: No acute lesions noted NEURO: CN 2-12 intact; 5/5 bilateral upper and lower extremity strength with sensation intact to light touch PSYCH: The patient's mood and manner are appropriate. Grooming and personal hygiene are appropriate. Course - Re-evaluation Re-evalutation: 03/08/18 17:45 Given the history and physical examination I will obtain basic electrolytes, venous blood gas, provide fluids and reassess. I will also attempt to provide outpatient primary care follow-up for Saturday. 03/08/18 17:48 Patient presented previously with a blood sugar initially around 1000. Discharge diagnosis medications as below: Alcohol Antiseptic Pads [Alcohol Wipes] 1 each ACHS #120 med..pad Blood Sugar Diagnostic [Test Strips] 1 each ACHS #120 strip Fluoxetine HCl [Prozac 20 mg Capsule] 20 mg PO DAILY #30 capsule Gabapentin [Neurontin 100 mg Capsule] 100 mg PO QHS #30 capsule Hydrochlorothiazide [Hydrodiuril 25 mg Tablet] 25 mg PO DAILY #30 tablet Insulin Glargine,Hum.rec.anlog [Lantus Insulin 100 Unit/mL] 24 unit SUBCUT BID #1 insuln.pen Insulin Aspart [Novolog Flexpen] 0 - 12 unit SUBCUT ACHS #1 pen Lancets [Blood Lancets] 1 each ACHS #120 each Lisinopril [Prinivil 10 mg Tablet] 40 mg PO DAILY #30 tablet Pen Needle, Diabetic [Novotwist] 1 each 6XD #180 dis.needle It appears the patient was supposed to be taking Lantus insulin 25 units subcu twice a day as well as NovoLog sliding scale. Patient states he now has realized that he can buy vials for much less money at the pharmacy and believes that he is able to do this. 03/08/18 17:58 I called and spoke directly to Dr. Catherine who states that once we control the patient's sugar he would like us to provide Lantus once daily and he will see the patient in the office at 9 AM as a walk-in. He took the patient's name and is agreeable for follow-up and possibly being able to provide the patient samples. 03/08/18 18:06 Patient states that he has not taken his blood pressure medications either in 3 months but he has his prescriptions already at the pharmacy minus the insulin. 03/08/18 18:15 Blood sugar as recorded. Anion gap and VBG as recorded. Potassium 4.4. Possibility of urinary tract infection. Urine culture has been sent. I will provide another liter of fluid, a gram of Rocephin, as well as the subQ insulin as requested by Dr. Catherine with a dose of the patient's blood pressure medications prior to discharge. - Vital Signs Vital signs: Temp Pulse Resp BP Pulse Ox 97.4 F 90 18 160/113 H 96 03/08/18 16:54 03/08/18 16:54 03/08/18 17:49 03/08/18 17:49 03/08/18 17:49 - Laboratory Result Diagrams: 03/08/18 17:29 03/08/18 17:29 Laboratory results interpreted by me: 03/08/18 03/08/18 17:29 17:45 Sodium 134.2 L BUN 24 H Glucose 615 H* Urine Glucose (UA) >=500 H Urine Ketones TRACE H Ur Leukocyte Esterase MODERATE H Discharge - Discharge Clinical Impression: Hyperglycemia without ketosis Condition: Fair Disposition: HOME, SELF-CARE Additional Instructions: Please take 20 units of sub Q insulin tomorrow evening as well as your other prescription medications. Please make sure that you check your glucose 3 times a day. Please make sure that you follow-up Saturday morning at 9 AM at the primary care physician's office that we have provided and secured for you. Return immediately with any fevers, vomiting, pain, or any other acute problems. Restart your blood pressure medications that you have waiting at the pharmacy and take the Keflex as prescribed for the possibility of urinary tract infection with follow-up with the urine culture on Saturday morning with the primary doctor. Prescriptions: Cephalexin Monohydrate [Keflex 500 mg Capsule] 500 mg PO Q6H 5 Days capsule Referrals: ASHLEY CATHERINE MD [ACTIVE STAFF] - Follow up as needed
[2018-03-08 18:01] LABS: ANION GAP 9 (5-19); BLOOD UREA NITROGEN 24 mg/dL (7-20); CALCIUM 9.7 mg/dL (8.4-10.2); CARBON DIOXIDE 27 mmol/L (22-30); CHLORIDE 98 mmol/L (98-107); POTASSIUM 4.4 mmol/L (3.6-5.0); SODIUM 134.2 mmol/L (137-145)
[2018-03-08 18:11] LABS: APPEARANCE,URINE CLEAR; BILIRUBIN,URINE NEGATIVE (NEGATIVE); COLOR,URINE COLORLESS; GLUCOSE, URINE >=500 mg/dL (NEGATIVE); KETONES,URINE TRACE mg/dL (NEGATIVE); LEUKOCYTE ESTERASE,URINE MODERATE (NEGATIVE); NITRITE,URINE NEGATIVE (NEGATIVE); PROTEIN,URINE NEGATIVE (NEGATIVE); URINE SPECIFIC GRAVITY 1.027; UROBILINOGEN,URINE NEGATIVE mg/dL (<2.0)
[2018-03-08 18:12] LABS: VENOUS BLOOD BASE EXCESS -1.8 mmol/L; VENOUS BLOOD HCO3 23.1 mmol/L (20-32); VENOUS BLOOD PH 7.38 (7.30-7.42)
[2018-03-08 18:13] LABS: GLUCOSE 615 mg/dL (75-110)
[2018-03-08] MEDS ORDERED: INSULIN REG, HUMAN 100 UNIT/ML 3 ML VIAL (PYX) IV ONE (18:15)
[2018-03-08] MEDS ORDERED: INSULIN GLARGINE,HUM.REC.ANLOG 1,000 UNIT/10 ML UNIT SUBCUT ONE (18:15)
[2018-03-08] MEDS ORDERED: LISINOPRIL 10 MG TABLET PO ONE (18:17)
[2018-03-08] MEDS ORDERED: CEFTRIAXONE 1 GM/D5W RTU 1 GM/50 ML RTUPB IV ONE (18:17)
[2018-03-08 20:54] VITALS: BP 155/92
== END 2018-03-08 21:23 | disposition home or self-care (01) ==
LOC: ER 16:43
DX: E11.65 Type 2 diabetes mellitus with hyperglycemia (principal); T38.3X6A Underdosing of insulin and oral hypoglycemic [antidiabetic] drugs, initial encounter; Z91.128 Patient's intentional underdosing of medication regimen for other reason; Z91.14 Patient's other noncompliance with medication regimen; Z79.84 Long term (current) use of oral hypoglycemic drugs; I10 Essential (primary) hypertension; E11.9 Type 2 diabetes mellitus without complications
CPT/HCPCS: 99284; 96361; 96365; 36415; 87086; 82962; 85025; 87088; 80048; 81001; 87186; 82803; A9270 ×3; J7030; J0696; J1815

== ENCOUNTER 2018-08-16 07:12 | Emergency (ER) | payer MEDICARE ==
--- NOTE | 2018-08-16 08:20 | ER Document Report ---
ED General - General Chief Complaint: Toothache Stated Complaint: TOOTH PAIN Time Seen by Provider: 08/16/18 08:10 TRAVEL OUTSIDE OF THE [place] IN LAST 30 DAYS: No - HPI Notes: 68-year-old male to the emergency department with complaints of lower teeth pain that began yesterday. He states that his lower gum is also swollen. He states he attempted to call dentist to make an appointment but they would not see him until the swelling had gone down. He states he has come to the emergency department for pain control and for antibiotics. He denies any fevers, drooling, facial swelling, difficulty swallowing, inability to open mouth, ear pain, headache, chest pain, or shortness of breath. - Related Data Allergies/Adverse Reactions: No Known Allergies Allergy (Verified 08/16/18 07:15) Past Medical History - Social History Smoking Status: Unknown if Ever Smoked Chew tobacco use (# tins/day): No Frequency of alcohol use: None Drug Abuse: None Family History: Reviewed & Not Pertinent Patient has suicidal ideation: No Patient has homicidal ideation: No - Past Medical History Cardiac Medical History: Reports: Hx Hypertension Endocrine Medical History: Reports: Hx Diabetes Mellitus Type 2 Renal/ Medical History: Denies: Hx Peritoneal Dialysis Past Surgical History: Reports: Hx Orthopedic Surgery - bilateral knee REPLA CEMENT Review of Systems - Review of Systems Constitutional: denies: Chills, Fever EENT: Mouth pain, Dental problem. denies: Ear pain Cardiovascular: denies: Chest pain, Palpitations, Dizziness, Lightheaded, Edema Respiratory: denies: Cough, Short of breath Gastrointestinal: denies: Abdominal pain, Diarrhea, Nausea, Vomiting Musculoskeletal: No symptoms reported Skin: No symptoms reported Neurological/Psychological: No symptoms reported -: Yes All other systems reviewed and negative Physical Exam - Vital signs Vitals: Temp Pulse Resp BP Pulse Ox 97.6 F 94 16 156/85 H 96 08/16/18 07:17 08/16/18 07:17 08/16/18 07:17 08/16/18 07:17 08/16/18 07:17 Interpretation: Hypertensive - General General appearance: Appears well, Alert - HEENT Head: Normocephalic, Atraumatic Eyes: Normal Pupils: PERRL Ears: Normal External canal: Normal Tympanic membrane: Normal Mouth/Lips: Caries, Other - Multiple dental caries throughout. All teeth worn down from teeth grinding. There is tenderness to palpation of the frontal lower teeth and noted gum swelling. There appears to be induration to the gum in front of these teeth but there is no constanza fluctuance. No Clem's angina, no drooling, no voice change, airway is grossly patent Mucous membranes: Normal Teeth diagram: 1 - These teeth are most tender to palpation Pharynx: Normal. No: Erythema, Exudate, Peritonsillar abscess, Tonsillar hypertrophy, Uvular edema, Potential airway comprom. Neck: Normal - Respiratory Respiratory status: No respiratory distress Chest status: Nontender Breath sounds: Normal Chest palpation: Normal - Cardiovascular Rhythm: Regular Heart sounds: Normal auscultation Murmur: No - Abdominal Inspection: Normal Distension: No distension Bowel sounds: Normal Tenderness: Nontender Organomegaly: No organomegaly - Back Back: Normal, Nontender - Extremities General upper extremity: Normal inspection, Nontender, Normal color, Normal ROM, Normal temperature General lower extremity: Normal inspection, Nontender, Normal color, Normal ROM, Normal temperature, Normal weight bearing. No: Chanelle's sign - Neurological Neuro grossly intact: Yes Cognition: Normal Orientation: AAOx4 [place] Coma Scale Eye Opening: Spontaneous [place] Coma Scale Verbal: Oriented [place] Coma Scale Motor: Obeys Commands [place] Coma Scale Total: 15 Speech: Normal Motor strength normal: LUE, RUE, LLE, RLE Sensory: Normal - Psychological Associated symptoms: Normal affect, Normal mood - Skin Skin Temperature: Warm Skin Moisture: Dry Skin Color: Normal Course - Vital Signs Vital signs: Temp Pulse Resp BP Pulse Ox 97.6 F 94 16 156/85 H 96 08/16/18 07:17 08/16/18 07:17 08/16/18 07:17 08/16/18 07:17 08/16/18 07:17 - Transfer of Care Notes: 08/16/18 08:24 Impression: Dental caries, dental pain, likely evolving dental abscess. There is no area of fluctuance for drainage. Plan to send patient home with antibiotics and pain medicine. He plans to call his dentist on Saturday to follow-up. Will discharge home. Patient agrees with the plan. Discharge - Discharge Clinical Impression: Pain, dental, Dental caries, Dental abscess Disposition: HOME, SELF-CARE Instructions: Toothache ([facility]), Clindamycin ([facility]), Dentist Additional Instructions: FOLLOW UP WITH YOUR DENTIST WITHOUT FAIL ON SATURDAY. TAKE ALL MEDICINES PRES CRIBED. RETURN IF WORSE. PUSH FLUIDS. Prescriptions: Clindamycin HCl 300 mg PO TID #30 capsule Hydrocodone/Acetaminophen [[place] 5-325 mg Tablet] 1 tab PO Q6H #10 tablet
[2018-08-16 08:37] VITALS: BP 167/84
== END 2018-08-16 08:37 | disposition home or self-care (01) ==
LOC: ER 07:12
DX: K08.89 Other specified disorders of teeth and supporting structures (principal); K02.9 Dental caries, unspecified; K04.7 Periapical abscess without sinus; R22.0 Localized swelling, mass and lump, head; I10 Essential (primary) hypertension; E11.9 Type 2 diabetes mellitus without complications
CPT/HCPCS: 99282